=== PATIENT | female | born 1940 | race Caucasian/White ===

== ENCOUNTER 2016-11-29 13:42 | Emergency (ER) | payer MEDICARE, BC ==
--- NOTE | ~2016-11-29 | CR72 ---
[facility] A Service of [facility] & [facility] RADIOLOGY TEXT RESULTS PATIENT: RODRIGUE KNAPP LOCATION: [facility] : 42 UNIT #: [id number] AGE: [address]: Naveen Lynn MD SEX: F ORDER DR: [id number] [facility] [address] [place], [place] [address] [id number] E MR#: [id number] Acc #: [id number] NAME: RODRIGUE KNAPP : 1940 SEX: F STUDY DATE/TIME: 11/29/2016 14:36 UNIT: [facility] ROOM: STUDY DESCRIPTION: CR Chest Single View Portable Attending Physician: Naveen Lynn M.D. Ordering Physician: Naveen Lynn M.D. Primary Care Physician: Jah Deutsch M.D. MEDICAL IMAGING REPORT This report is preliminary unless electronic signature is present EXAM Portable chest x-ray 11/29/2016 HISTORY Epigastric pain. History of myocardial infarction and CHF. Heart stents. Chest pain and short of air began this a.m. TECHNIQUE AP radiograph of the chest is compared to a study dated 12/20/2014. FINDINGS Dextroscoliosis mid-thoracic spine. Mild cardiac enlargement. Probably stable compared to prior study. Lung volumes lower than on prior study with mild central bronchovascular crowding. There are increased linear densities in the bilateral [id number] lung zones favored to reflect some areas of chronic scarring and some areas of atelectasis. There is no clear indication of pneumonia. No pleural effusion or pneumothorax. No suspicious nodule. Dictated by... Orlando Owen M.D. THIS IS AN ELECTRONICALLY VERIFIED REPORT Orlando Owen M.D. at 12/01/2016 11:34 AM HELIO/gio TD: 11/30/2016 07:20 JOB #: [id number] MEDICAL IMAGING REPORT Page 1 of 1 COPY
--- NOTE | ~2016-11-29 | CT2 ---
[facility] A Service of [facility] & [facility] RADIOLOGY TEXT RESULTS PATIENT: RODRIGUE KNAPP LOCATION: [facility] : 42 UNIT #: [id number] AGE: [address]: Naveen Lynn MD SEX: F ORDER DR: [id number] [facility] [address] [place], [place] [address] [id number] E MR#: [id number] Acc #: [id number] NAME: RODRIGUE KNAPP : 1940 SEX: F STUDY DATE/TIME: 11/29/2016 16:32 UNIT: [facility] ROOM: STUDY DESCRIPTION: CT Abd and Pelv W Cont Attending Physician: Naveen Lynn M.D. Ordering Physician: Naveen Lynn M.D. Primary Care Physician: Jah Deutsch M.D. MEDICAL IMAGING REPORT This report is preliminary unless electronic signature is present EXAM CT of the abdomen and pelvis with contrast. INDICATION Epigastric pain, nausea and burning since 11:00 a.m. today. TECHNIQUE Axial CT images were obtained from the dome of the diaphragm the patient the symphysis pubis following the administration of intravenous contrast material. This CT exam was performed with one or more of the following radiation dose reduction techniques: automatic exposure control, adjustment of mA and/or kV according to patient size, and iterative reconstruction. FINDINGS Scarring is demonstrated at the lung bases bilaterally. This patient has a moderate hiatal hernia. Pancreas is atrophic. There is a duodenal diverticulum. Common bile duct measures up to about 9 mm in size which is not significantly changed when compared to the prior examination. I do not see any intrahepatic biliary dilatation. There is a low-attenuation lesion identified within the medial hepatic segment which is stable when compared to the prior study. Gallbladder appears unremarkable. There is a left adrenal nodule measuring about 8 mm in size. Kidneys appear unremarkable. I do not see any free fluid or adenopathy. Within the abdomen, there is a circumaortic left renal vein. The appendix is visualized and is within normal limits. Uterus and urinary bladder appear normal. There is colonic diverticulosis although I am not convinced I can see any evidence of diverticulitis. There is an additional low-attenuation lesion seen within the lateral hepatic segment, again favored to be benign. [facility] A Service of [facility] RADIOLOGY TEXT RESULTS PATIENT: RODRIGUE KNAPP LOCATION: [facility] : 42 UNIT #: [id number] AGE: [address]: Naveen Lynn MD SEX: F ORDER DR: Review of bony windows does not demonstrate any aggressive osseous abnormalities. IMPRESSION 1. Moderate hiatal hernia. 2. This patient does have some mild dilatation of the common bile duct measuring up to about 9 mm in size. Similar findings were present on the prior study from May 2016. 3. Small duodenal diverticulum. 4. Low-attenuation lesion is seen within the liver favored to represent a benign lesion such as cysts. These appear unchanged when compared to the prior study. 5. Colonic diverticulosis without convincing evidence of diverticulitis. 6. Left adrenal nodule measuring about 8 mm in size. This is statistically most likely a benign adrenal adenoma but it could be better characterized with adrenal protocol CT or MRI on a nonemergent outpatient basis. Please see the body of the report for any other additional incidental findings. Dictated by... Mechelle Reyes M.D. THIS IS AN ELECTRONICALLY VERIFIED REPORT Mechelle Reyes M.D. at 12/02/2016 8:15 AM DAVID/carmen TD: 11/30/2016 11:39 JOB #: [id number] MEDICAL IMAGING REPORT Page 1 of 1 COPY
--- NOTE | ~2016-11-29 | EKG ---
PATIENT: RODRIGUE KNAPP UNIT #: [id number] Ventricular Rate: 74 BPM Atrial Rate: 74 BPM P-R Interval: 154 ms QRS Duration: 98 ms Q-T Interval: 412 ms QTC Calculation(Bezet): 457 ms P [place]: 55 degrees Calculated R [place]: -2 degrees Calculated T [place]: 45 degrees Diagnosis Line: Normal sinus rhythm Diagnosis Line: Poor R wave progression questionable lead position Diagnosis Line: or body habitus Nonspecific ST abnormality Diagnosis Line: Borderline ECG Diagnosis Line: When compared with ECG of 26-JUN-2016 18:37, Diagnosis Line: No significant change was found Diagnosis Line: Confirmed by CHUCK PARRY MD ([id number]) on 11/30/2016 Diagnosis Line: 3:26:41 PM INTERPRETING MD: SOHAN BUI
[~2016-11-29 13:42] MED LIST: DESYREL50 MG PO; ECOTRIN325 MG PO; HCTZ PO; LIPITOR80 MG PO; MICRO-K10 MEQ PO; PREVACID SOLUTA30 MG PO; REGLAN10 MG PO; TENORMIN25 MG PO; TENORMIN50 MG PO; TYLENOL PM EX-S1 TA4 PO
[2016-11-29] MEDS ORDERED: PATIENT'S PHARMACY (14:09)
[2016-11-29] MEDS ORDERED: COATED ASPIRIN325 M1 PO (14:10)
[2016-11-29] MEDS ORDERED: AMLODIPINE BES2.5 MG PO (14:10)
[2016-11-29] MEDS ORDERED: ATORVASTATIN CA80 MG PO (14:10)
[2016-11-29] MEDS ORDERED: HYDROCHLOROTHIA25 MG PO (14:10)
[2016-11-29] MEDS ORDERED: POTASSIUM CHLO20 ME2 PO (14:11)
[2016-11-29] MEDS ORDERED: LANSOPRAZOLE30 MG PO (14:11)
[2016-11-29] MEDS ORDERED: POTASSIUM CHLO10 ME1 PO (14:11)
[2016-11-29] MEDS ORDERED: DESYREL50 MG PO (14:12)
[2016-11-29 14:51] LABS: BASOPHIL% 0.3 % (0-2.5); EOSINOPHIL% 0.3 % (0.0-7.0); HEMATOCRIT 41.9 % (35.0-45.0); HEMOGLOBIN 13.6 gm/dL (12.0-16.0); LYMPHOCYTE% 14.7 % (17.0-45.0); MEAN CELL VOLUME 85.1 FL (83-96); MEAN CORPUSCULAR HEMOGLOBIN 27.6 PG (28-34); MEAN CORPUSCULAR HGB CONC 32.4 g/dL (30-36); MEAN PLATELET VOLUME 8.8 FL (6.5-11.5); MONOCYTE# 0.8 X10e3 (0-1.0); MONOCYTE% 5.5 % (3.0-12.0); NEUTROPHIL% 79.2 % (40-75); PLATELET COUNT 296 X10e3 (140-420); RED BLOOD COUNT 4.92 X10e (3.90-5.30); RED CELL DISTRIBUTION WIDTH 14.7 % (11.0-15.5); WHITE BLOOD COUNT 13.9 X10e3 (4.0-10.5)
[2016-11-29 14:53] LABS: DIFF IND NO
[2016-11-29 15:14] LABS: POC - CKMB <1.0 ng/mL (0.0-7.9); POC - TROPONIN <0.05 ng/mL (<=0.05)
[2016-11-29 15:14] LABS: ALBUMIN SERUM 4.1 g/dL (3.5-5.0); BILIRUBIN, DIRECT 0.4 mg/dL (0.0-0.2); BILIRUBIN,INDIRECT 1.1 mg/dL (0.0-0.9); BILIRUBIN,TOTAL 1.5 mg/dL (0.2-2.0); BUN/CREATININE RATIO 15.55; CALCIUM SERUM 8.7 mg/dL (8.4-10.2); CREATININE SERUM 0.9 mg/dL (0.6-1.4); POTASSIUM 3.1 mmol/L (3.5-5.1); PROTEIN TOTAL SERUM 7.8 g/dL (6.0-8.3)
[2016-11-29 16:43] LABS: POC - CKMB <1.0 ng/mL (0.0-7.9); POC - TROPONIN <0.05 ng/mL (<=0.05)
== END 2016-11-29 17:46 | disposition home or self-care (01) ==
LOC: CED 13:42
PROVIDERS: Emergency Medicine
DX: R10.13 Epigastric pain (principal); I25.10 Atherosclerotic heart disease of native coronary artery without angina pectoris; I11.0 Hypertensive heart disease with heart failure; I50.9 Heart failure, unspecified; K21.9 Gastro-esophageal reflux disease without esophagitis; G47.33 Obstructive sleep apnea (adult) (pediatric); Z79.82 Long term (current) use of aspirin; Z79.899 Other long term (current) drug therapy
CPT/HCPCS: 36415; 71010; 74177; 80048; 80076; 82553; 83690; 84484; 85025; 93005; 96374; 96375; 99285; C9113; J2765; Q9967

== ENCOUNTER → 2016-12-16 | Outpatient (CLI) | payer MEDICARE, BC ==
[~2016-12-16] MED LIST changes: +AMLODIPINE BES2.5 MG PO; +ATORVASTATIN CA80 MG PO; +COATED ASPIRIN325 M1 PO; +HYDROCHLOROTHIA25 MG PO; +LANSOPRAZOLE30 MG PO; +PATIENT'S PHARMACY; +POTASSIUM CHLO10 ME1 PO; +POTASSIUM CHLO20 ME2 PO
--- NOTE | ~2016-12-16 | NM22 ---
[facility] A Service of [facility] RADIOLOGY TEXT RESULTS PATIENT: RODRIGUE KNAPP LOCATION: [facility] : 44 UNIT #: [id number] AGE: [address]: Krista Pires APRN SEX: F ORDER DR: [id number] [facility] [address] [place], [place] [address] [id number] O MR#: [id number] Acc #: [id number] NAME: RODRIGUE KNAPP : 1940 SEX: F STUDY DATE/TIME: 12/16/2016 9:47 UNIT: [facility] ROOM: STUDY DESCRIPTION: NM Hepatobiliary W GB Pharm Attending Physician: Krista Pires Aprn Referring Physician: Krista Pires Aprn Ordering Physician: Krista Pires Aprn Primary Care Physician: Jah Deutsch M.D. MEDICAL IMAGING REPORT This report is preliminary unless electronic signature is present EXAM Hepatobiliary scan 12/16 INDICATIONS Epigastric pain and bloating and belching with acid reflux since May 2016. TECHNIQUE Imaging was obtained of the abdomen for 60 minutes after the IV administration of 5.7 mCi of Tc-99m Choletec. COMPARISON STUDIES Comparison made with CT abdomen from 11/29/2016. FINDINGS There is prompt uptake by the liver. Gallbladder activity is seen within 30 minutes as is biliary and small bowel activity. There is no evidence of acute cholecystitis. Following IV administration of 1.6 mcg of Kinevac, gallbladder ejection fraction is normal at 52.4%. IMPRESSION Normal hepatic biliary scan. Normal gallbladder ejection fraction at 52.4% following Kinevac stimulation. Dictated by... Noah Lopez Jr., M.D. THIS IS AN ELECTRONICALLY VERIFIED REPORT Noah Lopez Jr., M.D. at 12/17/2016 7:35 PM RLK/gio [facility] A Service [facility] RADIOLOGY TEXT RESULTS PATIENT: RODRIGUE KNAPP LOCATION: [facility] : 44 UNIT #: [id number] AGE: [address]: Krista Pires APRN SEX: F ORDER DR: TD: 12/16/2016 22:11 JOB #: [id number] MEDICAL IMAGING REPORT Page 1 of 1 COPY
== END | disposition home or self-care (01) ==
LOC: CNUC 09:13
DX: R10.9 Unspecified abdominal pain (principal); R11.0 Nausea
CPT/HCPCS: 78227; A9537; J2805

== ENCOUNTER → 2016-12-20 | Outpatient (CLI) | payer MEDICARE, BC ==
--- NOTE | ~2016-12-20 | MR145 ---
[facility] A Service of [facility] RADIOLOGY TEXT RESULTS PATIENT: RODRIGUE KNAPP LOCATION: [facility] : 44 UNIT #: [id number] AGE: [address]: Krista Pires APRN SEX: F ORDER DR: [id number] [facility] [address] [place], [place] [address] [id number] O MR#: [id number] Acc #: [id number] NAME: RODRIGUE KNAPP : 1940 SEX: F STUDY DATE/TIME: 12/20/2016 10:09 UNIT: [facility] ROOM: STUDY DESCRIPTION: MR MRCP WWo Contrast Attending Physician: Krista Pires Aprn Referring Physician: Krista Pires Aprn Ordering Physician: Krista Pires Aprn Primary Care Physician: Jah Deutsch M.D. MRI CENTER REPORT This report is preliminary unless electronic signature is present. EXAM MRI abdomen with and without contrast MRCP protocol INDICATIONS Epigastric abdominal pain on 11/29/[address] on 11/29/2016. Upper abdominal pain today. PROCEDURE Multiplanar, multisequence MR imaging of the abdomen prior to and following 17 mL of MultiHance. MRCP sequences are included. COMPARISON CT from 12/26/2016 FINDINGS Abdomen without contrast: The liver has normal size and morphology. There is mild diffuse hepatic steatosis. Common duct measures 7 mm. Pancreatic duct nondilated. The gallbladder has normal signal. The spleen, kidneys have normal signal. Moderate sized hiatal hernia. There is a 7 mm benign left adrenal adenoma. Pancreas is atrophic otherwise has normal signal. There are uncomplicated left-sided colonic diverticula. Abdomen with contrast: No abnormal enhancement in the abdomen. There are 2 small cysts in the liver, largest in segment 4 measures up to 1.2 cm. IMPRESSION 1. Mild hepatic steatosis and too small benign hepatic cysts. 2. No bile duct dilation. [facility] A Service of [facility] RADIOLOGY TEXT RESULTS PATIENT: RODRIGUE KNAPP LOCATION: [facility] : 44 UNIT #: [id number] AGE: [address]: Krista Pires APRN SEX: F ORDER DR: 3. Moderate sized hiatal hernia. 4. 7 mm benign left adrenal adenoma. 5. Other incidental findings detailed above. Dictated by... Cody Barton M.D. THIS IS AN ELECTRONICALLY VERIFIED REPORT Cody Barton M.D. at 12/21/2016 8:28 AM EED/to TD: 12/20/2016 19:33 JOB #: [id number] MRI CENTER REPORT Page 1 of 1 COPY
== END | disposition home or self-care (01) ==
LOC: CMRI 09:42
DX: R74.0 Nonspecific elevation of levels of transaminase and lactic acid dehydrogenase [LDH] (principal); K83.8 Other specified diseases of biliary tract; R74.8 Abnormal levels of other serum enzymes; D35.02 Benign neoplasm of left adrenal gland; K76.0 Fatty (change of) liver, not elsewhere classified; K76.89 Other specified diseases of liver; K44.9 Diaphragmatic hernia without obstruction or gangrene
CPT/HCPCS: 74183; A9577